=== PATIENT | female | born 1965 | race Asian ===

== ENCOUNTER 2019-09-22 06:31 | Emergency (ER) | payer BC ==
[~2019-09-22] VITALS: Ht 160 cm; Wt 74.4 kg
[2019-09-22 06:38] VITALS: Ht 160 cm; Wt 74.4 kg
[2019-09-22 08:03] VITALS: BP 160/71
[2019-09-22 08:18] LABS: UA SPECIFIC GRAVITY <=1.005 (1.005-1.035); microscopic required? YES; urine erythrocyte 3+ (NEGATIVE)
== END 2019-09-22 08:03 | disposition home or self-care (01) ==
LOC: ED 06:31
PROVIDERS: Emergency Medicine
DX: R31.9 Hematuria, unspecified (principal); R30.0 Dysuria; K21.9 Gastro-esophageal reflux disease without esophagitis
CPT/HCPCS: 87491; 87591

== ENCOUNTER 2020-10-14 02:48 | Emergency (ER) | payer BC ==
[~2020-10-14] VITALS: Ht 160 cm; Wt 71.7 kg
[2020-10-14 02:56] VITALS: Ht 160 cm; Wt 71.7 kg
[2020-10-14 04:47] LABS: BASOPHIL % 0.5 % (0-2); PLATELET COUNT 247 x10^3mcL (130-400); RED CELL DISTRIBUTION WIDTH 11.7 % (11.5-14.5)
[2020-10-14 05:02] LABS: CALCIUM 9.1 mg/dL (8.5-10.1); CARBON DIOXIDE 30.7 mmol/L (21-32); CREATININE SERUM 1.1 mg/dL (0.6-1.0); POTASSIUM SERUM 4.3 mmol/L (3.5-5.1)
[2020-10-14 05:16] LABS: ALBUMIN 3.6 g/dL (3.4-5.0); BILIRUBIN TOTAL 0.2 mg/dL (0.20-1.00); TOTAL PROTEIN, SERUM 7.8 g/dL (6.4-8.2)
[2020-10-14 06:16] VITALS: BP 140/70
== END 2020-10-14 06:16 | disposition home or self-care (01) ==
LOC: ED 02:48
PROVIDERS: Student in an Organized Health Care Education/Training Program
DX: R00.2 Palpitations (principal); K21.9 Gastro-esophageal reflux disease without esophagitis